=== PATIENT | female | born 1950 | race Caucasian/White ===

== ENCOUNTER 2016-06-29 17:34 | Emergency (ER) | payer MEDICARE, OTHER ==
[2016-06-29] MEDS ORDERED: HYDROXYZINE HCL50 M1 PO (18:10)
[2016-06-29] MEDS ORDERED: TYLENOL325 M2 PO (18:10)
[2016-06-29] MEDS ORDERED: KLONOPIN1 M1 PO (18:10)
[2016-06-29] MEDS ORDERED: ARTIFICIAL TEA1 EAC3 OP (18:11)
[2016-06-29] MEDS ORDERED: ANTACID ULTRA400 MG PO (18:11)
[2016-06-29] MEDS ORDERED: DULCOLAX5 M1 PO (18:12)
[2016-06-29] MEDS ORDERED: MILK OF MAGNESIA PO (18:12)
[2016-06-29] MEDS ORDERED: LOPERAMIDE2 M2 PO (18:12)
[2016-06-29] MEDS ORDERED: DERMOPLAST SPRA56 GM TP (18:12)
[2016-06-29] MEDS ORDERED: CYMBALTA60 M1 PO (18:19)
[2016-06-29] MEDS ORDERED: SEROQUEL25 M2 PO (18:19)
[2016-06-29] MEDS ORDERED: MELATONIN5 M5 PO (18:19)
[2016-06-29] MEDS ORDERED: COZAAR50 M1 PO (18:20)
[2016-06-29] MEDS ORDERED: AMBIEN5 M1 PO (18:20)
[2016-06-29] MEDS ORDERED: SAPHRIS5 M1 SL (18:20)
[2016-06-29] MEDS ORDERED: PEPCID20 M1 PO (18:20)
[2016-06-29] MEDS ORDERED: CELEBREX200 M1 PO (18:20)
[2016-06-29] MEDS ORDERED: SYNTHROID150 MC1 PO (18:20)
[2016-06-29] MEDS ORDERED: VITAMIN D31000 UNI3 PO (18:21)
[2016-06-29] MEDS ORDERED: TOPROL XL25 M1 PO (18:21)
[2016-06-29 19:26] LABS: BASO % 0.4 % (0-2); BASO ABSOLUTE COUNT 0.1 tho/cmm (0.0-0.2); EOS % 0.4 % (0-7); HCT-HEMATOCRIT 41.6 % (34.0-49.0); HGB-HEMOGLOBIN 14.1 gm/dl (12.0-15.5); IMMATURE GRANULOCYTES PERCENT 0.9 % (0-0.3); LYMPH % 16.5 % (20-45); LYMPH ABSOLUTE COUNT 1.9 tho/cmm (0.8-4.5); MCH (MEAN CORPUSCULAR HGB) 31.4 pg (28.0-32.0); MCHC MEAN CORPUSCULAR HGB CONC 33.9 % (32.0-36.0); MCV (MEAN CELL VOLUME) 92.7 fl (82.0-96.0); MEAN PLATELET VOLUME 9.9 cmc (9.4-12.4); MONO % 19.7 % (0-12); MONOCYTE ABSOLUTE COUNT 2.2 tho/cmm (0.0-1.2); NEUTROPHIL ABSOLUTE COUNT 7.1 tho/cmm (1.6-8.0); NEUTROPHIL-AUTOMATED 7.1 tho/cmm (1.6-8.0); NEUTROPHILS % 62.1 % (40-80); PLATELET COUNT 337 tho/cmm (150-450); RED BLOOD COUNT 4.49 mil/cmm (4.00-5.20); RED CELL DISTRIBUTION WIDTH 13.6 % (12.4-16.4); WHITE BLOOD COUNT 11.4 tho/cmm (4.0-10.0)
[2016-06-29 19:35] LABS: ANION GAP 10 mmol/L (0-20); BLOOD UREA NITROGEN 12 mg/dl (6-24); CALCIUM 9.3 mg/dl (8.5-10.5); CARBON DIOXIDE-VENOUS 31 mmol/L (22-32); CHLORIDE 104 mmol/l (96-110); CREATININE 0.75 mg/dl (0.50-1.10); GLUCOSE 104 mg/dL (70-110); POTASSIUM 3.9 mmol/L (3.7-5.1); SODIUM 141 mmol/L (135-145); eGFR VALUE FOR BLACK >90 mL/Min
[2016-06-29 21:14] LABS: URINE BILIRUBIN NEGATIVE (NEG); URINE BLOOD NEGATIVE (NEG); URINE GLUCOSE (UA) NEGATIVE (NEG); URINE KETONE MODERATE (NEG); URINE LEUKOCYTE ESTERASE POSITIVE (NEG); URINE NITRITE NEGATIVE (NEG); URINE PROTEIN NEGATIVE (NEG); URINE SPECIFIC GRAVITY 1.015 (1.003-1.030)
[2016-06-29 21:17] LABS: URINE APPEARANCE SL CLOUDY; URINE COLOR YELLOW
[2016-06-29 21:22] LABS: URINE BACTERIA 2+
[2016-06-29 21:23] LABS: URINE EPITHELIAL CELLS 20-25 /[HPF] (0-10); URINE RBC 0 /[HPF] (0-5)
== END 2016-06-29 21:59 ==
LOC: EDMED 17:34
PROVIDERS: Physician Assistant
DX: E86.0 Dehydration (principal); F25.9 Schizoaffective disorder, unspecified; Z90.49 Acquired absence of other specified parts of digestive tract; Z90.89 Acquired absence of other organs; Z79.899 Other long term (current) drug therapy
CPT/HCPCS: J7030